=== PATIENT | female | born 2000 | race African-American/Black ===

== ENCOUNTER 2024-07-10 16:48 | Emergency (ER) | payer MEDICAID ==
[~2024-07-10] VITALS: Ht 165.1 cm; Wt 104.0 kg
[2024-07-10 16:54] VITALS: BP 146/91; RESP 16; TEMP 36.9; O2SAT 98
[2024-07-10 16:55] VITALS: PULSE 143; O2SAT 97
[2024-07-10] MEDS: ONDANSETRON HCL 4MG/2ML INJ IV STA (17:22)
[2024-07-10] MEDS: MORPHINE SULFATE 4 MG/ML INJ (FOR IV/IM USE) IV STA (17:22)
[2024-07-10 17:34] LABS: BASOPHILS % 0.7 % (0.0-2.0); EOSINOPHILS % 1.1 % (0.0-5.0); HEMATOCRIT. 36.3 % (36.0-48.0); MEAN CORPUSCULAR HEMOGLOBIN 26.9 pg (28.0-32.0); MEAN CORPUSCULAR HGB CONC 33.1 g/dL (31.0-37.0); MEAN CORPUSCULAR VOLUME 81.2 fL (81.0-99.0); MEAN PLATELET VOLUME 7.6 fl (7.4-10.4); MONOCYTES % 7.3 % (2.0-8.0); NEUTROPHILS % 58.9 % (40.0-76.0); PLATELET 499 x1000/uL (130-400); RED BLOOD CELL COUNT 4.47 mill/uL (4.2-5.4); RED CELL DISTRIBUTION WIDTH 14.2 % (11.6-14.6); WHITE BLOOD COUNT 13.8 x1000/uL (4.5-11.0)
[2024-07-10 17:41] LABS: CARBON DIOXIDE 25 mEq/L (21-32); CHLORIDE 101 mEq/L (98-107); POTASSIUM 3.7 mEq/L (3.5-5.1); SODIUM 135 mEq/L (136-145)
[2024-07-10 17:42] LABS: CALCIUM 9.5 mg/dL (8.7-10.4)
[2024-07-10 17:46] LABS: CREATININE 0.8 mg/dL (0.6-1.0); GLUCOSE 114 mg/dL (70-105)
[2024-07-10 17:47] LABS: UREA NITROGEN BLOOD 7 mg/dL (9-23)
[2024-07-10 17:48] LABS: ALANINE AMINOTRANSFERASE 42 IU/L (10-49); ALBUMIN 4.4 g/dL (3.2-4.8); ASPARTATE AMINOTRANSFERASE 39 IU/L (<34)
[2024-07-10 17:49] LABS: BILIRUBIN DIRECT 0.1 mg/dL (<=3.0); BILIRUBIN TOTAL 0.4 mg/dL (0.1-1.0); PROTEIN TOTAL 8.3 g/dL (6.0-8.3)
[2024-07-10 17:53] LABS: CLARITY URINE CLEAR (CLEAR); COLOR URINE YELLOW (YELLOW); GLUCOSE URINE NEGATIVE (NEGATIVE); KETONES URINE NEGATIVE (NEGATIVE); LEUKOCYTE ESTERASE URINE 1+ (NEGATIVE); NITRITE URINE NEGATIVE (NEGATIVE); OCCULT BLOOD URINE NEGATIVE (NEGATIVE); PROTEIN URINE NEGATIVE (NEGATIVE); SPECIFIC GRAVITY URINE 1.013 (1.005-1.030); UROBILINOGEN URINE 0.2 E.U./dL (0.2-1.0)
[2024-07-10 17:56] LABS: HCG SCREEN NEGATIVE
[2024-07-10 18:16] LABS: BACTERIA URINE NONE SEEN; RBC URINE NONE SEEN /hpf (0-2); SQUAMOUS EPITHELIAL CELL URINE FEW /lpf (RARE/1+)
[2024-07-10] MEDS ORDERED: NITR-87 MT (19:40)
== END 2024-07-10 19:53 | disposition home or self-care (01) ==
LOC: ER 16:48
DX: K80.20 Calculus of gallbladder without cholecystitis without obstruction (principal); R82.71 Bacteriuria
CPT/HCPCS: 99285; 96374; 76705; 71045; 96375; 80053; 81003; 81025; 84703; 83690; 85025; 36415; 80076; J2405; J2270